=== PATIENT | female | born 1980 | race Caucasian/White ===

== ENCOUNTER → 2017-08-01 | Emergency (ER) | payer OTHER ==
[~2017-08-01] VITALS: Ht 172.7 cm; Wt 84.8 kg
[~2017-08-01] MED LIST: IBUPROFEN800 MG PO; NORFLEX100MG PO; PROPANOLOL; SYNTHROID50 MCG; YAZ 28 TABLET1 TAB PO
== END | disposition home or self-care (01) ==
LOC: ER 19:45
DX: M62.838 Other muscle spasm (principal); R51 Headache

== ENCOUNTER 2017-08-08 15:07 | Emergency (ER) | payer OTHER ==
[~2017-08-08] VITALS: Ht 172.7 cm; Wt 84.8 kg
== END 2017-08-08 22:53 | disposition home or self-care (01) ==
LOC: ER 15:07 → CPU-OBS 15:18 → ER 22:53
DX: R07.89 Other chest pain (principal)

== ENCOUNTER 2023-01-17 13:01 | Outpatient (CLI) | payer OTHER | END 2023-01-17 13:13 | disposition home or self-care (01) | LOC: MAMO-SONO 13:01 | PROVIDERS: ATTEND Obstetrics & Gynecology | DX: N60.11 Diffuse cystic mastopathy of right breast (principal); Z12.31 Encounter for screening mammogram for malignant neoplasm of breast ==

== ENCOUNTER 2023-11-24 10:00 | Inpatient (IN) | payer OTHER ==
[2023-11-24 12:00] VITALS: BP 120/80
[2023-11-24] MEDS ORDERED: LEVOTHYROXINE25 MCG (12:07)
[2023-11-24] MEDS ORDERED: LOSARTAN POTASS25 MG (12:08)
[2023-11-24 12:11] LABS: HEMATOCRIT 36.5 % (36.0-45.00); HEMOGLOBIN 12.3 g/dL (12.0-15.00); MEAN CELL VOLUME 83.6 fL (80.00-100.00); MEAN CORPUSCULAR HEMOGLOBIN 28.1 pg (27.00-32.0); MEAN CORPUSCULAR HGB CONC 33.6 g/dl (32.0-36.0); PLATELET COUNT 358 K/uL (150-450); RED BLOOD COUNT 4.36 M/uL (4.00-6.00); RED CELL DISTRIBUTION WIDTH 14.4 % (11.5-14.5)
[2023-11-24 12:55] LABS: INR 0.99; PARTIAL THROMBOPLASTIN TIME 33.3 SECONDS (22.0-34.0); PROTHROMBIN TIME 10.8 SECONDS (9.0-11.5)
[2023-11-24 13:03] LABS: ALBUMIN 3.7 gm/dL (3.4-5.0); BILIRUBIN TOTAL 0.4 mg/dL (0.3-1.2); CALCIUM 8.8 mg/dL (8.5-10.1); CREATININE SERUM 0.76 mg/dL (0.55-1.02); GFR 83.46; GLOBULINA 3.5 G/DL (2.4-3.5); POTASSIUM 4.76 mEq/L (3.5-5.1); TOTAL PROTEIN 7.2 gm/dL (6.4-8.2)
[2023-11-29] MEDS ORDERED: CEFAZOLIN SODIUM 1,000 MG VIAL ONE (08:30)
[2023-11-29] MEDS ORDERED: POVIDONE-IODINE 118 ML BOTT TOP ONE (10:58)
[2023-11-29] MEDS ORDERED: LIDOCAINE HCL 1%/EPINEPHRINE 20ML VIAL IJ ONE (11:26)
[2023-11-29] MEDS ORDERED: CEFAZOLIN SODIUM 2,000 MG in 0.9 % SODIUM CHLORIDE 100 ML IV ONE (12:00)
[2023-11-29] MEDS ORDERED: VISTASEAL DUAL APPICATOR 1 EACH APPL TOP ONE (12:36)
[2023-11-29] MEDS ORDERED: THROMBIN,HU/FIBRINOGEN/CALCIUM 10 ML SYRINGE TOP ONE (12:36)
[2023-11-29] MEDS ORDERED: SUGAMMADEX SODIUM 200 MG/2 ML VIAL IV ONE (13:02)
[2023-11-29] MEDS ORDERED: MORPHINE SULFATE 4 MG/ML VIAL IV ONE (14:50)
[2023-11-29] MEDS ORDERED: MORPHINE SULFATE 4 MG/ML CARTRIDGE IV PRN (15:15)
[2023-11-29] MEDS ORDERED: ACETAMINOPHEN 500 MG GEL..CAP PO PRN (15:15)
[2023-11-29] MEDS ORDERED: KETOROLAC TROMETHAMINE 30 MG VIAL ONE (16:25)
[2023-11-29] MEDS ORDERED: ONDANSETRON HCL 2 MG/ML VIAL ONE (16:25)
[2023-11-29 17:00] VITALS: BP 120/80
[2023-11-29] MEDS ORDERED: ONDANSETRON HCL 4 MG in 0.9 % SODIUM CHLORIDE 50 ML IV SCH (17:00)
[2023-11-29] MEDS ORDERED: SIMETHICONE 125 MG CAPSULE PO SCH (17:00)
[2023-11-29] MEDS ORDERED: GABAPENTIN 300 MG CAPSULE PO SCH (17:00)
[2023-11-29] MEDS ORDERED: KETOROLAC TROMETHAMINE 30 MG VIAL IV SCH (18:00)
[2023-11-29 20:30] VITALS: BP 111/71
[2023-11-30] VITALS: BP 102/68
[2023-11-30 07:08] LABS: HEMATOCRIT 33.1 % (36.0-45.00); HEMOGLOBIN 11.5 g/dL (12.0-15.00); MEAN CELL VOLUME 83.5 fL (80.00-100.00); MEAN CORPUSCULAR HEMOGLOBIN 28.9 pg (27.00-32.0); MEAN CORPUSCULAR HGB CONC 34.6 g/dl (32.0-36.0); PLATELET COUNT 302 K/uL (150-450); RED BLOOD COUNT 3.96 M/uL (4.00-6.00); RED CELL DISTRIBUTION WIDTH 14.4 % (11.5-14.5)
[2023-11-30 07:57] LABS: ALBUMIN 2.8 gm/dL (3.4-5.0); BILIRUBIN TOTAL 0.38 mg/dL (0.3-1.2); CALCIUM 8.1 mg/dL (8.5-10.1); CREATININE SERUM 0.68 mg/dL (0.55-1.02); GFR 94.89; GLOBULINA 2.7 G/DL (2.4-3.5); POTASSIUM 4.1 mEq/L (3.5-5.1); TOTAL PROTEIN 5.5 gm/dL (6.4-8.2)
[2023-11-30 08:00] VITALS: BP 120/78
[2023-11-30] MEDS ORDERED: LEVOTHYROXINE SODIUM 25 MCG TABLET PO NR ×2 (08:30→09:00)
[2023-11-30] MEDS ORDERED: LOSARTAN POTASSIUM 25 MG TABLET PO SCH (09:00)
[2023-11-30] MEDS ORDERED: ENOXAPARIN SODIUM 40 MG/0.4 ML SYRINGE SUBCUTANEO SCH (13:57)
[2023-11-30 15:31] VITALS: BP 122/79
[2023-12-01 00:32] VITALS: BP 102/67
[2023-12-01] MEDS ORDERED: LEVOTHYROXINE SODIUM 25 MCG TABLET PO SCH (06:00)
[2023-12-01 09:10] VITALS: BP 125/81
== END 2023-12-01 11:18 | disposition home or self-care (01) | DRG 743 ==
LOC: O/R 11-29 05:45 → OB/GYN 11-29 05:45 → SURG 11-29 09:30 → OB/GYN 11-29 14:00
PROVIDERS: Obstetrics & Gynecology; ADMIT Obstetrics & Gynecology; ATTEND Obstetrics & Gynecology
PROC: 0UT74ZZ Resection of Bilateral Fallopian Tubes, Percutaneous Endoscopic Approach (ICD-10-PCS; 2023-11-29)
PROC: 0UT94ZZ Resection of Uterus, Percutaneous Endoscopic Approach (ICD-10-PCS; principal; 2023-11-29 09:30)
DX: D25.1 Intramural leiomyoma of uterus (principal); N80.03 Adenomyosis of the uterus; Z20.822 Contact with and (suspected) exposure to COVID-19